=== PATIENT | female | born 2000 | race Asian ===

== ENCOUNTER 2025-03-09 10:16 | Outpatient (AMB) | payer OTHER, SELFPAY ==
--- NOTE | 2025-03-09 10:20 | A.OFFPC_ITS ---
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 Health Maintenance: The patient presents to [facility] after recently moving to the area and is requesting a yearly physical. The patient has no personal medical history, takes no medications, and has had no prior surgeries. History of Vitamin D deficiency: The patient reports a history of vitamin D deficiency for which the patient was previously prescribed medication. Cervical cancer screening: A review of medical records from 12/06 indicates a Pap smear was performed and was negative for intraepithelial lesions. The patient is not due for another screening for two years. Surgical History: - None reported. Medications: - The patient denies taking any medicati ons. Social History: - The patient is and moved to [facility] two years ago. - The patient has no children. - The patient denies smoking. - The patient reports occasional alcohol consumption, about once every three months. - The patient recently relocated from [facility] in December. Family History: - Father: History of hypertension. Diagnostic Results: - Pap smear (12/06): Negative for intrae pithelial lesions. Past Medical History - History of vitamin D deficiency, previ ously treated with medication. - Denies any other medical history, incl uding hypertension. Health Maintenance - Comprehensive laboratory studies will be obtained, including a complete blood count, comprehensive metabolic panel, urinalysis, thyroid stimulating hormone, vitamin B12, folate, vitamin D, hemoglobin A1c, and a lipid panel. - Screening for hepatitis B, hepatitis C , and HIV will also be performed. - A follow-up visit is scheduled in two weeks to review the results of the laboratory work. [facility] Medical History (Updated 03/09/25 @ 11:06 by Gerald Land MD) Vitamin D deficiency Family History (Updated 03/09/25 @ 10:21 by Cecy Flood CMA) Mother No problems noted. Father No problems noted. Social History Housing: Apartment Patient Tobacco Use Status: Never used Tobacco service: No Current occupational status: employed and unemployed Cognitive needs: No Hearing needs: No Vision needs: No Questionnaire PHQ-9 Over the last 2 weeks, how often have you been bothered by any of the following problems? 1. Little interest or pleasure in doing things: not at all 2. Feeling down, depressed, or hopeless: not at all 3. Trouble falling or staying asleep, or sleeping too much: not at all 4. Feeling tired or having little energy: not at all 5. Poor appetite or overeating: not at all 6. Feeling bad about yourself - or that you are a failure or have let yourself or your family down: not at all 7. Trouble concentrating on things, such as reading the newspaper or watching television: not at all 8. Moving or speaking so slowly that other people could have noticed. Or the opposite - being so fidgety or restless that you have been moving around a lot more than usual: not at all 9. Thoughts that you would be better off or of hurting yourself in some way: not at all Total score: 0 Depression Screening Interpretation: Negative Depression Screening Done: Yes Source: Developed by Drs. Christian Sneed, Ilsa Harper, James Fan and colleagues, with an educational lukas from [employer]. Thrive Questionnaire Date Thrive assessed: 03/09/25 I am a: Patient What is your living situation today?: I have a steady place to live Within the past 12 months, did the food you bought not last and you didn't have the money to get more?: Never true Within the past 12 months, did you worry whether your food would run out before you got money to buy more?: Never true Do you have trouble paying for medicines?: No Do you have trouble getting transportation to medical appointments?: No Do you have trouble paying your heating and electricity bill?: No Do you have trouble taking care of your child, family member or friend?: No Do you have trouble with day-to-day activities such as bathing, preparing meals, shopping, managing finances, etc.?: No Are you currently unemployed and looking for a job?: I choose not to answer this question Are you interested in more education?: I choose not to answer this question Please select the resources that you would like help with: None Currently or been in a relationship where the following occur: No concerns reported THRIVE Score: 0 TACO-7 AMB Questionnaire TACO-7 Date TACO - 7 assessed: 03/09/25 Feeling nervous, anxious, or on edge: 0 = Not at all Not being able to stop or control worryin = Not at all Worrying too much about different things: 0 = Not at all Trouble relaxin = Not at all Being so restless that it is hard to sit still: 0 = Not at all Becoming easily annoyed or irritable: 0 = Not at all Feeling afraid as if something awful might happen: 0 = Not at all Total TACO-7 score (0-4 normal; 5-9 mild; 10-14 moderate; 15-21 severe): 0 Source: Developed by Drs. Christian Sneed, Ilsa Harper, James Fan and colleagues, with an educational lukas from [employer]. Review of Systems Narrative Review of Systems - Constitutional: Reports good sleep. - Allergic/Immunologic: Denies allergies. - Gastrointestinal: Reports normal bowel movements. - Genitourinary: Reports normal urination. - Gynecologic: Reports regular menses, but noted a slightly heavier flow during the last cycle. Denies heavy flow otherwise. 10-point ROS reviewed and negative except as noted in HPI Physical exam (Primary Care) Vital Signs: Last Vital Signs Temp 97.5 F 03/09/25 10:30 Pulse 65 03/09/25 10:30 BP 111/72 03/09/25 10:30 Pulse Ox 98 03/09/25 10:30 Oxygen Delivery Method Room Air 03/09/25 10:30 BMI result Body Mass Index 24.0 Tobacco/Smoking Status: Tobacco use Status Tobacco use date assessed 03/09/25 03/09/25 10:21 Patient Tobacco Use Status Never used Tobacco 03/09/25 10:21 PHQ-9: PHQ-9 Score PHQ-9: Total score 0 03/09/25 10:43 Depression Screening Interpretation: Negative Thrive Assessment: Date of Thrive Assessment Date Thrive assessed 03/09/25 03/09/25 10:21 Currently or been in a relationship where the following occur: No concerns reported Narrative Physical Exam General: Well-appearing, in no acute distress. Vital signs: Blood pressure looks good. Everything looks good. HEENT: Normocephalic, atraumatic. PERRLA, EOMI. Conjunctiva clear, sclera anicteric. Oropharynx clear, mucous membranes moist. TMs intact bilaterally. Neck: Supple, no lymphadenopathy, no thyromegaly, no JVD or carotid bruits. Cardiovascular: RRR, normal S1/S2, no murmurs, rubs, or gallops. Peripheral pulses 2+ and symmetric. No edema. Respiratory: Lungs clear to auscultation bilaterally, no wheezes, rales, or rhonchi. Normal effort. Abdomen: Soft, non-tender, non-distended. Normoactive bowel sounds. No hepatosplenomegaly, no masses. Percussed and pressed down, no pain. MSK: Full range of motion, no joint swelling or deformity. Normal gait. Skin: Warm, dry, intact. No rashes, lesions, or pallor. Neuro: Alert and oriented x3. Cranial nerves II-XII intact. Strength 5/5 throughout. Sensation intact. Reflexes 2+ symmetric. Normal coordination and gait. Psych: Appropriate mood and affect. Normal judgment and insight. Office Procedures Flu Questionnaire Does the patient have a severe egg allergy?: No Does the patient have severe life threatening allergies?: No Does the patient have a fever or illness today?: No Has the patient ever had Guillain-Duff Syndrome?: No Has the patient ever had any past reaction to a flu shot?: No Immunizations Fluarix [id number] (PF) 45 mcg (15 mcg x 3)/0.5 mL IM syringe Performing Provider: Gerald Land MD Performing Location[place] [facility] [place] [facility] Document[facility] (not given) by: Cecy Flood CMA on 03/09/25 10:43 Reason Not Given: Patient Refused Coding Level of Care Code New Pt Level 4 (40046) Diagnoses Vitamin D deficiency E55.9 Establishing care with new doctor, encounter for Z76.89 Assessment & Plan Assessment & Plan (1) Vitamin D deficiency: Code(s): E55.9 - Vitamin D deficiency, unspecified Category: Medical (2) Establishing care with new doctor, encounter for: Code(s): Z76.89 - Persons encountering health services in other specified circumstances Plan Consent The plan to perform a blood draw for comprehensive laboratory testing, including a complete blood count, comprehensive metabolic panel, urinalysis, thyroid studies, vitamin levels (B12, folate, D), hemoglobin A1c, lipid panel, and infectious disease screening (Hepatitis B, C, and HIV) was discussed. The patient provided verbal consent to proceed with the blood draw. Patient was informed and verbally consented to the use of an ambient scribe for clinic note documentation during this visit. Plan 1. History Of Vitamin D Deficiency - Given the patient's history of vitamin D deficiency, a vitamin D level will be checked as part of the scheduled lab work. 2. Cervical Cancer Screening - The patient's Pap smear from 12/06 was negative for intraepithelial lesions. - No repeat screening is required for another two years. Discussion Notes I explained to the patient that since this is our first encounter, the visit would serve as an initial evaluation rather than a full physical exam. I outlined the plan to order a comprehensive panel of blood tests to get a picture of the patient's overall health, including a CBC, CMP, urinalysis, thyroid, vitamin levels (B12, folate, D), hemoglobin A1c, lipid panel, and infectious disease screenings. I informed the patient that a follow-up visit in two weeks will be necessary to review the lab results and address any potential concerns. After reviewing the patient's records, I confirmed that the Pap smear from 12/06 was negative and that no repeat is needed for another two years. Patient Instructions - Complete the blood work as ordered today. - The tests will check your blood counts, liver and kidney function, electrolytes, thyroid, blood sugar, cholesterol, and vitamin levels. - Please schedule a follow-up appointment in two weeks to discuss your lab results. Medical Decision Making The patient is a 24-year-old individual presenting for an initial visit to establish care and for a wellness check. The patient reports no significant personal medical history, takes no medications, and has no history of surgeries. Family history is positive for hypertension in the father. A targeted physical examination was unremarkable. Given this is an initial encounter, the decision was made to perform a comprehensive laboratory workup to establish a baseline and screen for common conditions prior to a full physical exam on a subsequent visit. This includes assessment of hematologic, metabolic, endocrine, and nutritional status, as well as infectious disease screening per standard guidelines. A review of outside records confirmed the patient is up to date with cervical cancer screening. Follow-up in two weeks will allow for a thorough review of the objective data and formulation of a long-term health maintenance plan. Total Time Statement 30 min Total time spent caring for the patient today includes pre-visit chart review, documentation, review of laboratory and diagnostic imaging results, medication reconciliation, medically necessary evaluation, counseling on diagnoses, care coordination, ordering appropriate tests and medications, review of tests performed by other providers, reporting test results to the patient, and communication with other healthcare providers. Orders: Orders Complete Blood Count Auto Diff Today Z13.9 - Encounter for screening, unspecified Comprehensive Met. Panel Today Z13.9 - Encounter for screening, unspecified CT NG by PCR Urine Today Z13.9 - Encounter for screening, unspecified HIV Ab/Ag Today Z13.9 - Encounter for screening, unspecified Lipid Panel Today Z13.9 - Encounter for screening, unspecified Hemoglobin A1c Today Z13.9 - Encounter for screening, unspecified Magnesium Today Z13.9 - Encounter for screening, unspecified Hepatitis B Surface Antibody Today Z13.9 - Encounter for screening, unspecified Influenza [id number] Immunization Today Z23 - Encounter for immunization Hepatitis B Surface Antigen Today Z13.9 - Encounter for screening, unspecified Syphilis Screen Today Z13.9 - Encounter for screening, unspecified Hepatitis C Antibody Today Z13.9 - Encounter for screening, unspecified TSH reflex Free T4 Today Z13.9 - Encounter for screening, unspecified UA CC w/rflx Micro + Cult Today Z13.9 - Encounter for screening, unspecified Vitamin B12 and Folate Today Z13.9 - Encounter for screening, unspecified Vitamin D 1,25 dihydroxy Today Z13.9 - Encounter for screening, unspecified
[2025-03-09 10:30] VITALS: BP 111/72; PULSE 65; TEMP 36.4; O2SAT 98; BMI 24.0
== END 2025-03-09 11:05 | disposition home or self-care (01) ==
LOC: HO.HMCFMS 10:16
PROVIDERS: PCP Student in an Organized Health Care Education/Training Program; Visit Provider Student in an Organized Health Care Education/Training Program
DX: E55.9 Vitamin D deficiency, unspecified (principal); Z76.89 Persons encountering health services in other specified circumstances; Z23 Encounter for immunization

== ENCOUNTER 2025-03-09 10:16 | Outpatient (REF) | payer OTHER, SELFPAY ==
[2025-03-09 18:10] LABS: MANUAL DIFF FLAG NO
[2025-03-09 18:32] LABS: Hematocrit 38.7 % (37.0-47.0); Hemoglobin 13.3 g/dl (12.0-16.0); Imm Gran Abs Auto 0.01 X10*3/uL (0.00-0.03); Imm Gran Pct Auto 0.1 % (0.0-0.4); Lymphocytes Absolute Auto 2.5 X10*3/uL (1.2-4.9); Mean Corpuscular HGB Conc 34.4 g/dl (31.0-35.0); Mean Corpuscular Hemoglobin 29.6 pg (27.0-33.0); Mean Corpuscular Volume 86.0 fL (80.0-98.0); NRBC Abs Auto 0.000 X10*3/uL (0.0-0.012); NRBC Pct Auto 0.0 /100WBC (0.0-0.2); Platelet Count 288 X10*3/uL (160-400); Red Blood Count 4.50 X10*6/uL (4.20-5.50); White Blood Count 6.8 X10*3/uL (4.8-10.8)
[2025-03-09 18:45] LABS: Appearance Urine Clear; Glucose Urine UA Negative (Negative); PH 6.5 (5.0-9.0); Specific Gravity - Urine 1.010 (1.005-1.025)
[2025-03-09 19:01] LABS: Alanine Aminotransferase 13 U/L (0-31); Albumin Level 4.8 g/dL (3.5-5.0); Alkaline Phosphatase 53 U/L (39-117); Anion Gap 12 (12-20); Aspartate Amino Transferase 32 U/L (5-31); Blood Urea Nitrogen 9 mg/dL (9-16); Calcium 9.3 mg/dL (8.4-10.2); Carbon Dioxide 25 mmol/L (22-29); Chloride 106 mmol/L (96-108); Cholesterol 152 mg/dL (<200); Estimated Glomerular Filt Rate > 60; HDL Cholesterol 36 mg/dL (>40); Magnesium 2.2 mg/dL (1.6-2.6); Potassium 4.0 mmol/L (3.3-5.1); Sodium 139 mmol/L (135-145); Total Protein 7.6 g/dL (6.5-8.0); Triglycerides 75 mg/dL (<150)
[2025-03-09 19:13] LABS: Folate 16.5 ng/mL (> or = 4.0); Vitamin B12 604 pg/mL (200-900)
[2025-03-09 23:16] LABS: CT PCR Urine NOT DETECTED (Not Detect.); NG PCR Urine NOT DETECTED (Not Detect.)
[2025-03-10 05:06] LABS: Syphilis Screen Nonreactive (Nonreactive)
[2025-03-10 05:30] LABS: HBS Num1 21.10 mIU/mL (0-7.99); HBsAGNum1 0.51 S/CO (0.00-0.99); HIV Num 1 0.06 S/CO (0.00-0.99); Hepatitis B Surface Antigen Negative (Negative); ~HepC Num1 0.09 S/CO (0.00-0.79); ~Hepatitis B Surface Antibody REACTIVE (Nonreactive); ~Hepatitis C Antibody Nonreactive (Nonreactive)
[2025-03-13 14:09] LABS: VITAMIN D (1,25 OH) D3 53 pg/mL; Vit D (1,25-Dihydroxy) Total 53 pg/mL (18-72); Vitamin D (1,25 OH) D2 <8 pg/mL
== END 2025-03-09 10:17 | disposition home or self-care (01) ==
LOC: HO.HKASLDS 10:16
PROVIDERS: PCP Student in an Organized Health Care Education/Training Program; Visit Provider Student in an Organized Health Care Education/Training Program
DX: E55.9 Vitamin D deficiency, unspecified (principal); Z76.89 Persons encountering health services in other specified circumstances; Z28.21 Immunization not carried out because of patient refusal; Z13.1 Encounter for screening for diabetes mellitus
CPT/HCPCS: 80053; 80061; 81003; 82607; 82652; 82746; 83036; 83735; 84443; 85025; 86706; 86780; 86803; 87340; 87389; 87491; 87591; 90471; 96127